=== PATIENT | female | born 1975 | race Caucasian/White ===

== ENCOUNTER 2019-03-12 19:30 | Emergency (ER) | payer SELFPAY ==
[~2019-03-12] VITALS: Ht 165.1 cm; Wt 83.5 kg
[2019-03-12 20:01] VITALS: BP 122/99; Ht 165.1 cm; Wt 83.5 kg
== END 2019-03-12 21:00 | disposition home or self-care (01) ==
LOC: ED 19:30
DX: K64.4 Residual hemorrhoidal skin tags (principal); Z98.890 Other specified postprocedural states